=== PATIENT | male | born 1970 | race Caucasian/White ===

== ENCOUNTER 2018-10-20 20:28 | Inpatient (IN) | payer MEDICAID ==
[~2018-10-20] VITALS: Ht 180.3 cm; Wt 154.5 kg
[2018-10-20 21:29] LABS: CALCIUM 8.5 mg/dL (8.5-10.1); CARBON DIOXIDE 27.2 mmol/L (21-32); CREATININE SERUM 1.4 mg/dL (0.7-1.3); POTASSIUM SERUM 3.6 mmol/L (3.5-5.1)
[2018-10-20 21:33] LABS: ALBUMIN 3.4 g/dL (3.4-5.0); BILIRUBIN TOTAL 0.6 mg/dL (0.20-1.00); CHOLESTEROL/HDL RATIO 4.8; TOTAL PROTEIN, SERUM 7.3 g/dL (6.4-8.2)
[2018-10-20 21:40] LABS: BASOPHIL % 0.5 % (0-2); PLATELET COUNT 211 x10^3mcL (130-400); RED CELL DISTRIBUTION WIDTH 13.5 % (11.5-14.5)
[2018-10-20] MEDS ORDERED: ASPIR LOW81 MG PO (22:28)
[2018-10-20] MEDS ORDERED: LOSARTAN POTASS50 M1 PO (22:28)
[2018-10-20] MEDS ORDERED: GLYCOTROL CAPS1 EACH (22:29)
[2018-10-20] MEDS ORDERED: MAGNESIUM OXID400 MG PO (22:29)
[2018-10-20] MEDS ORDERED: VITAMIN B-100 N1 TAB (22:31)
[2018-10-20 23:39] VITALS: BP 132/78
[2018-10-20 23:45] VITALS: Ht 180.3 cm; Wt 154.5 kg
[2018-10-21 00:12] LABS: PHOSPHOROUS 3.3 mg/dL (2.5-4.9)
[2018-10-21 06:01] VITALS: BP 126/58
[2018-10-21 06:42] LABS: CALCIUM 8.3 mg/dL (8.5-10.1); CARBON DIOXIDE 27.9 mmol/L (21-32); CHLORIDE SERUM 105 mmol/L (98-107); CREATININE SERUM 1.2 mg/dL (0.7-1.3); GFR1 > 60 mL/min; GLUCOSE SERUM 90 mg/dL (74-106); SODIUM SERUM 139 mmol/L (136-145)
[2018-10-21 07:29] LABS: PLATELET COUNT 171 x10^3mcL (130-400); RED CELL DISTRIBUTION WIDTH 13.7 % (11.5-14.5)
[2018-10-21 07:30] LABS: BASOPHIL % 0.5 % (0-2)
[2018-10-21 09:09] VITALS: BP 139/73
[2018-10-21 14:17] VITALS: BP 156/84
[2018-10-21 16:20] VITALS: BP 132/76
[2018-10-21] MEDS ORDERED: LOSARTAN POTASS50 M1 PO (16:45)
== END 2018-10-21 16:53 | disposition home or self-care (01) | DRG 203 ==
LOC: ED 20:28 → MU 22:39 → DU 22:39 → MU 10-21 12:48
PROVIDERS: Emergency Medicine; ADMIT Family Medicine
DX: M94.0 Chondrocostal junction syndrome [Tietze] (principal); N17.0 Acute kidney failure with tubular necrosis; I16.0 Hypertensive urgency; I44.7 Left bundle-branch block, unspecified; E78.5 Hyperlipidemia, unspecified; E66.01 Morbid (severe) obesity due to excess calories; Z68.42 Body mass index [BMI] 45.0-49.9, adult; Z77.22 Contact with and (suspected) exposure to environmental tobacco smoke (acute) (chronic); Z79.82 Long term (current) use of aspirin
CPT/HCPCS: 83880; 85378; 94150; J7030; Q0092